=== PATIENT | male | born 1965 | race African-American/Black ===

== ENCOUNTER 2016-12-21 12:44 | Emergency (ER) | payer OTHER ==
[2016-12-21] MEDS ORDERED: Sulfameth/Trimethoprim DS 800-160mg TAB ONE (13:06)
[2016-12-21] MEDS ORDERED: traMADol HCl 50 MG TAB ONE (13:06)
== END 2016-12-21 13:07 | disposition home or self-care (01) ==
LOC: BURERS 12:44
DX: L03.031 Cellulitis of right toe (principal); I10 Essential (primary) hypertension; F17.210 Nicotine dependence, cigarettes, uncomplicated
CPT/HCPCS: 99283

== ENCOUNTER 2017-05-16 15:37 | Emergency (ER) | payer OTHER ==
--- NOTE | 2017-05-16 18:26 | RAD ---
RIGHT KNEE FOUR VIEWS: 05/16/17 No fracture, recent or remote, was appreciated. The joint space is normal in width. There are no sig nificant arthritic changes. No joint effusion was seen. IMPRESSION: No acute bony findings. No findings to explain the patient's knee pain. POS: HOME
== END 2017-05-16 16:36 | disposition home or self-care (01) ==
LOC: BURERS 15:37
DX: M25.561 Pain in right knee (principal); I10 Essential (primary) hypertension; F17.210 Nicotine dependence, cigarettes, uncomplicated

== ENCOUNTER 2017-06-10 22:43 | Emergency (ER) | payer OTHER ==
[2017-06-10] MEDS ORDERED: Ibuprofen 800 MG TAB ONE (22:55)
[2017-06-10] MEDS ORDERED: HYDROcodone/Acetaminophen 10/325 mg Tablet ONE (22:55)
[2017-06-10] MEDS ORDERED: Ciprofloxacin 500 MG TAB ONE (22:55)
== END 2017-06-10 23:00 | disposition home or self-care (01) ==
LOC: BURERS 22:43
DX: S91.331A Puncture wound without foreign body, right foot, initial encounter (principal); I10 Essential (primary) hypertension; F17.210 Nicotine dependence, cigarettes, uncomplicated; W45.0XXA Nail entering through skin, initial encounter; Y92.009 Unspecified place in unspecified non-institutional (private) residence as the place of occurrence of the external cause
CPT/HCPCS: 99283

== ENCOUNTER 2017-07-30 16:19 | Emergency (ER) | payer OTHER | END 2017-07-30 16:55 | disposition home or self-care (01) | LOC: BURERS 16:19 | DX: J11.1 Influenza due to unidentified influenza virus with other respiratory manifestations (principal); I10 Essential (primary) hypertension; F17.290 Nicotine dependence, other tobacco product, uncomplicated; Z79.899 Other long term (current) drug therapy | CPT/HCPCS: 93005; 94760 ==

== ENCOUNTER 2018-01-07 19:33 | Emergency (ER) | payer OTHER ==
[2018-01-07] MEDS ORDERED: HYDROcodone/Acetaminophen 10/325 mg Tablet ONE (19:54)
[2018-01-07] MEDS ORDERED: AMOXicillin 250 MG CAP ONE (19:54)
== END 2018-01-07 19:56 | disposition home or self-care (01) ==
LOC: BURERS 19:33
DX: S01.511A Laceration without foreign body of lip, initial encounter (principal); K13.0 Diseases of lips; F17.210 Nicotine dependence, cigarettes, uncomplicated; Z79.899 Other long term (current) drug therapy; X58.XXXA Exposure to other specified factors, initial encounter
CPT/HCPCS: 12011

== ENCOUNTER 2018-09-19 20:49 | Emergency (ER) | payer OTHER | END 2018-09-19 21:14 | disposition home or self-care (01) | LOC: BURERS 20:49 | DX: K02.9 Dental caries, unspecified (principal); I10 Essential (primary) hypertension; F17.210 Nicotine dependence, cigarettes, uncomplicated; Z79.899 Other long term (current) drug therapy | CPT/HCPCS: 99283 ==

== ENCOUNTER 2018-09-21 14:00 | Emergency (ER) | payer OTHER ==
[2018-09-21 14:42] LABS: Anion Gap 13 mmol/L (10-20); BUN (Urea Nitrogen) 14 mg/dL (8.4-25.7); Calc. Creatinine Clearance 0 mL/min (70-130); Calcium 9.6 mg/dL (7.8-10.44); Carbon Dioxide 25 mmol/L (22-29); Chloride 106 mmol/L (98-107); Estimated GFR-MDRD 84; Glucose 124 mg/dL (70-105); Sodium 140 mmol/L (136-145)
[2018-09-21 14:49] LABS: Hemoglobin 15.8 g/dL (14.0-18.0); Mean Corpuscular HGB CONC 34.8 g/dL (32.0-36.0); Mean Corpuscular Hemoglobin 30.4 pg (27.0-31.0); Mean Corpuscular Volume 87.4 fL (78.0-98.0); Platelet Count 265 thou/uL (130-400); RBC Distribution Width 13.1 % (11.5-14.5); Red Blood Cell (RBC) Count 5.19 mill/uL (4.70-6.10); White Blood Cell (WBC) Count 7.9 thou/uL (4.8-10.8)
[2018-09-21 14:53] LABS: Band 4 % (5-11); Eosinophils 2 % (0-10); Lymphocytes 32 % (21-51); MDiff Complete? YES; Monocytes 10 % (0-10); Neutrophil 50 % (42-75); Reactive Lymphocytes 2 % (0-10)
[2018-09-21] MEDS ORDERED: Dexamethasone 4 MG TAB ONE (14:59)
[2018-09-21] MEDS ORDERED: AMOXicillin 250 MG CAP ONE (14:59)
== END 2018-09-21 15:05 | disposition home or self-care (01) ==
LOC: BURERS 14:00
DX: R59.0 Localized enlarged lymph nodes (principal); I10 Essential (primary) hypertension; F17.210 Nicotine dependence, cigarettes, uncomplicated; Z79.899 Other long term (current) drug therapy
CPT/HCPCS: 36415; 80048; 85025; 99283; J8540

== ENCOUNTER 2019-09-12 14:59 | Emergency (ER) | payer OTHER ==
[2019-09-12] MEDS ORDERED: HYDROcodone/Acetaminophen 5/325 mg Tablet ONE (15:24)
[2019-09-12] MEDS ORDERED: Ibuprofen 800 MG TAB ONE (15:25)
--- NOTE | 2019-09-12 15:55 | RAD ---
LUMBAR SPINE SERIES THREE VIEWS: History: Low back pain, status post fall on 09-11-2019. FINDINGS: Vertebral bodies and disc spaces are fairly well preserved. There are small osteophytes present. No c ompression fractures. Pedicles are intact. Vascular calcifications are noted. IMPRESSION: No acute changes. POS: [facility]
== END 2019-09-12 15:46 | disposition home or self-care (01) ==
LOC: BURERS 14:59
DX: M54.5 Low back pain (principal); F17.210 Nicotine dependence, cigarettes, uncomplicated; I10 Essential (primary) hypertension; W17.89XA Other fall from one level to another, initial encounter
CPT/HCPCS: 72100

== ENCOUNTER 2019-09-14 17:12 | Emergency (ER) | payer OTHER | END 2019-09-14 17:34 | disposition home or self-care (01) | LOC: BURERS 17:12 | DX: M54.41 Lumbago with sciatica, right side (principal); I10 Essential (primary) hypertension; F17.210 Nicotine dependence, cigarettes, uncomplicated | CPT/HCPCS: 99281 ==

== ENCOUNTER 2021-04-02 16:44 | Emergency (ER) | payer OTHER | END 2021-04-02 17:15 | disposition home or self-care (01) | LOC: BURERS 16:44 | DX: R51.9 Headache, unspecified (principal); I10 Essential (primary) hypertension; F17.210 Nicotine dependence, cigarettes, uncomplicated; Z79.899 Other long term (current) drug therapy | CPT/HCPCS: 99283 ==

== ENCOUNTER 2021-10-24 19:55 | Emergency (ER) | payer OTHER ==
[2021-10-24] MEDS ORDERED: Acetaminophen/Codeine 30-300mg Tablet ONE (21:31)
[2021-10-24] MEDS ORDERED: Cephalexin 250 MG CAP ONE (21:32)
== END 2021-10-24 21:41 | disposition home or self-care (01) ==
LOC: BURERS 19:55
DX: K04.7 Periapical abscess without sinus (principal); K02.9 Dental caries, unspecified; I10 Essential (primary) hypertension; F17.210 Nicotine dependence, cigarettes, uncomplicated
CPT/HCPCS: 99282